=== PATIENT | female | born 1965 | race Caucasian/White ===

== ENCOUNTER 2019-04-21 16:38 | Emergency (ER) | payer BC ==
[2019-04-21] MEDS ORDERED: MAGNESIUM SULFATE 16 MEQ in 0.9 % SODIUM CHLORIDE 100ML 100 ML IV ONE (16:45)
[2019-04-21 17:05] LABS: ABSOLUTE NEUTROPHIL COUNT 8.91; BASO % 0.1 % (0-6); GRAN % 77.3 % (47-80); HEMATOCRIT 42.3 % (35.0-47.0); HEMOGLOBIN 11.8 gm/dl (11.6-16.0); LYMPH % 9.5 % (16-45); MEAN CELL VOLUME 65.6 fl (81-97); MEAN CORPUSCULAR HGB CONC 27.9 g/dl (32-36); MEAN PLATELET VOLUME 9.9 fl (7.4-10.4); MONO % 13.1 % (0-9); PLATELET COUNT 336 K/uL (130-400); RED BLOOD COUNT 6.45 M/uL (3.80-5.40); RED CELL DISTRIBUTION WIDTH 21.4 % (11.5-14.5); WHITE BLOOD COUNT W/O DIFF 11.5 K/uL (4.2-12.2)
[2019-04-21 17:14] LABS: BLOOD UREA NITROGEN 20 mg/dL (6-20); CREATININE 0.4 mg/dL (0.5-0.9); EST GLOMERULAR FILTRATION RATE > 60 mL/min
[2019-04-21 17:15] LABS: MEAN CORPUSCULAR HEMOGLOBIN 18.2 pg (27-33)
[2019-04-21 17:17] LABS: GLUCOSE,RANDOM 154 mg/dL (74-109)
[2019-04-21] MEDS ORDERED: 0.9 % SODIUM CHLORIDE 1,000 ML BAG IV ONE ×2 (17:28→18:15)
[2019-04-21 17:29] LABS: ARTERIAL BLOOD GAS pH 7.19 (7.35-7.45)
[2019-04-21] MEDS ORDERED: CEFTRIAXONE 1GM/50ML BAG 1 GM/50 ML BAG IVPB ONE (17:29)
[2019-04-21 17:30] LABS: ALLEN TEST PASS
--- NOTE | 2019-04-21 17:32 | Emergency Department Record ---
History of Present Illness - General Chief Complaint: Difficulty Breathing Stated Complaint: GUILLE Time Seen by Provider: 04/21/19 16:38 Source: Family Mode of Arrival: EMS Limitations: Altered mental status - History of Present Illness Initial Comments: The patient is here due to a hx of severe COPD and with SOB for the last 3 days. The SOB got much worse the last 2 hours. She developed a decreased level of consciousness at home so her called 911. The patient was found by EMS obtunded with very little air movement and a low biox. She has per her had a worse wet cough recently but no fever. The patient did receive multiple breathing Tx's and Solumedrol en route. She has been admitted twice in the last 2 years for COPD exacerbations and is on home O2. MD Complaint: Shortness of breath Onset/Timin -: Days(s) - Related Data Home Oxygen Therapy: Yes Home Oxygen Amount: 2 Liters Home Medications Medication Instructions Recorded Confirmed Last Taken Buspirone HCl [Buspar] 5 mg PO BID 04/21/19 04/21/19 1 Day Ago ~04/20/19 Ergocalciferol (Vitamin D2) 50,000 unit PO WEEKLY 04/21/19 04/21/19 1 Day Ago [Vitamin D2] ~04/20/19 Ipratropium/Albuterol [Duoneb] 3 ml IH Q4H 04/21/19 04/21/19 1 Day Ago ~04/20/19 Levothyroxine Sodium [Synthroid] 175 mcg PO DAILY 04/21/19 04/21/19 1 Day Ago ~04/20/19 Allergies Allergy/AdvReac Type Severity Reaction Status Date / Time levothyroxine sodium Allergy ANAPHYLAXIS Verified 04/21/19 16:53 [From Synthroid] Travel Screening - Travel/Exposure Within Last 30 Days Have you traveled within the last 30 days?: No - Travel/Exposure Within Last Year Have you traveled outside the [place] in the last year?: No - Additonal Travel Details Have you been exposed to anyone with a communicable illness?: No - Travel Symptoms Symptom Screening: None Review of Systems ROS unobtainable: Due to mental status Past Medical History - SOCIAL HISTORY Smoking Status: Light tobacco smoker (<10/day) Alcohol Use: None Drug Use: None - RESPIRATORY Hx Respiratory Disorders: Yes Hx COPD: Yes Comment:: O2 for 1 year per EMS. - CARDIOVASCULAR Hx Cardio Disorders: No - NEURO Hx Neuro Disorders: No - GI Hx GI Disorders: Yes Hx Reflux: Yes - Hx Genitourinary Disorders: No - ENDOCRINE Hx Endocrine Disorders: Yes Hx Diabetes: No Hx Thyroid Disease: Yes (allergic to generic synthroid) - MUSCULOSKELETAL Hx Musculoskeletal Disorders: No - PSYCH Hx Psych Problems: Yes Hx Anxiety: Yes Hx Depression: Yes - HEMATOLOGY/ONCOLOGY Hx Hematology/Oncology Disorders: Yes Hx Anemia: Yes (Thalacemia) Hx Cancer: Yes (cervical) Family Medical History Any Significant Family History?: Yes Family Hx Comment (NOT TO BE USED IN PLACE OF ITEMS BELOW): unknown Physical Exam - General General Appearance: Moderate distress Limitations: Altered mental status - Head Head exam: Atraumatic - Eye Eye exam: Normal appearance - Neck Neck exam: Normal inspection - Respiratory Respiratory exam: Decreased breath sounds. negative: Normal lung sounds bilaterally - Cardiovascular Cardiovascular Exam: Regular rate, Normal rhythm, Normal heart sounds - GI/Abdominal GI/Abdominal exam: Soft, Normal bowel sounds. negative: Tenderness - Extremities Extremities exam: Normal inspection, Full ROM, Normal capillary refill. negative: Tenderness - Neurological Neurological exam: Altered (The patient does open her eyes with very minimal stimulation.). negative: Alert - Skin Skin exam: negative: Rash Course Vital Signs 04/21/19 04/21/19 16:41 17:08 Temperature 97.6 F Pulse Rate 104 H Pulse Rate [ 103 H Enroller ] Respiratory 8 L 12 Rate Blood Pressure 120/86 Blood Pressure 149/94 [Left Arm] Pulse Ox 94 L 92 L - Reevaluation(s) Reevaluation #1: The patient is hemodynamically stable at this time. She is waking up and is more alert. Her biox is running mid 90's presently. The patient's ABG does show significant CO2 retention. We will continue to treat for 30 minutes and check a 2nd ABg. If not significantly better the patient will need to be intubated. 04/21/19 17:39 Reevaluation #2: The patient is doing a lot better at this time. She is much more awake and alert and answering questions. She states her breathing is improved. The patient's 2nd ABG is significantly improved so I do not feel she will need to be intubated at this time. I did originally contact [facility] but since the patient will not to be intubated they could not accept her. I then did discuss the [place] [facility] [place]. We have treated the patient for pneumonia and her respiratory status continues to improve. 04/21/19 18:43 Medical Decision Making - Management Options MDM Management: Additional Work-up Planned (e.g. ADM/Transfer/OP Study) - Data Complexity MDM Data: Labs Ordered and/or Reviewed, X-Ray Ordered and/or Reviewed, EKG Ordered and/or Reviewed - Lab Data Result diagrams: 04/21/19 16:55 04/21/19 16:55 Lab Results 04/21/19 04/21/19 04/21/19 Range/Units 16:43 16:55 16:55 WBC 11.5 (4.2-12.2) K/uL RBC 6.45 H (3.80-5.40) M/uL Hgb 11.8 (11.6-16.0) gm/dl Hct 42.3 (35.0-47.0) % MCV 65.6 L (81-97) fl MCH 18.2 L (27-33) pg MCHC 27.9 L (32-36) g/dl RDW 21.4 H (11.5-14.5) % Plt Count 336 (130-400) K/uL MPV 9.9 (7.4-10.4) fl Gran % 77.3 (47-80) % Lymphocytes % 9.5 L (16-45) % Monocytes % 13.1 H (0-9) % Eosinophils % 0.0 (0-6) % Basophils % 0.1 (0-6) % Absolute Neutrophils 8.91 Puncture Site Right wrist pCO2 108.0 H* (35-48) mmHg pO2 81.0 L (83-108) mmHg HCO3 Not Reportable Oxyhemoglobin Not Reportable ABG pH 7.19 L* (7.35-7.45) ABG O2 Saturation Not Reportable ABG Base Excess Not Reportable Carlos Alberto Test Pass Carboxyhemoglobin Not Reportable Methemoglobin Not Reportable Actual Respiration Rate 16.0 (10-18) /MIN FiO2 92.0 % Sodium 144 (136-145) mmol/L Potassium 5.1 H (3.4-4.5) mmol/L Chloride 97 L (98-107) mmol/L Carbon Dioxide 38.0 H (22-29) mmol/L Anion Gap 9.0 (7-16) BUN 20 (6-20) mg/dL Creatinine 0.4 L (0.5-0.9) mg/dL Estimated GFR > 60 mL/min Random Glucose 154 H (74-109) mg/dL Calcium 9.7 (8.6-10.0) mg/dL - EKG Data -: EKG Interpreted by Me EKG: No Acute Changes, Abnormal EKG (Sinus Tach at 101, Old anterior wall [place].) - Radiology Data Radiology results: Report reviewed (CXR: COPD) Critical Care Time Critical Care Time: Yes (45) Total Critical Care Time: 45 Disposition Disposition: Transfer Clinical Impression: Respiratory failure Qualifiers: Chronicity: acute Respiratory failure complication: hypercapnia Qualified Code(s): J96.02 - Acute respiratory failure with hypercapnia Disposition: Acute Care Hospital [place] [facility] [place]: [place] Accepting Physician: Ashia Time Discussed w/Accepting Physician: 18:46 Condition: (2) Stable Forms: Patient Portal Access Time of Disposition: 18:47 Quality - Quality Measures Quality Measures: N/A - Blood Pressure Screening View Details: Yes Does Patient Have Any of the Following: No Blood Pressure Classification: Pre-Hypertensive BP Reading Systolic Measurement: 120 Diastolic Measurement: 86 Screening for High Blood Pressure: < Pre-Hypertensive BP, F/U Documented > [G8950] Pre-Hypertensive Follow-up Interventions: Referral to alternative/primary care provider.
--- NOTE | 2019-04-21 17:37 | RADIOLOGY REPORT ---
EXAMINATION: Single View Chest EXAM DATE: 04/21/2019 5:06 PM TECHNIQUE: Upright AP portable chest INDICATION: GUILLE COMPARISON: None. ENCOUNTER: Not applicable FINDINGS: Hyperinflation Central interstitial prominence No pneumothorax or pleural effusion demonstrated Grid artifact IMPRESSION: No acute intrathoracic finding demonstrated COPD Dictated by: Koko Rocha MD on 04/21/2019 5:34 PM. .
[2019-04-21 18:19] LABS: ARTERIAL BLOOD GAS PCO2 97.1 mmHg (35-48); ARTERIAL BLOOD GAS pH 7.23 (7.35-7.45)
[2019-04-21 18:20] LABS: ALLEN TEST PASS
[2019-04-21] MEDS ORDERED: AZITHROMYCIN 500 MG in 0.9 % SODIUM CHLORIDE 250ML 250 ML IVPB ONE (18:27)
== END 2019-04-21 19:12 | disposition short-term general hospital (02) ==
LOC: ER 16:38
DX: J96.02 Acute respiratory failure with hypercapnia (principal); J44.9 Chronic obstructive pulmonary disease, unspecified; Z99.81 Dependence on supplemental oxygen; F17.210 Nicotine dependence, cigarettes, uncomplicated; I25.2 Old myocardial infarction
CPT/HCPCS: 36600; 71045; 80048; 82375; 82803; 83605; 84484; 85025; 93005; 93010; 94640; 94660; 96365; 96366; 96368; 96375; 99291; J0456; J0696; J7030; J7050

== ENCOUNTER 2019-06-22 16:55 | Emergency (ER) | payer BC ==
[2019-06-22] MEDS ORDERED: ALBUTEROL (0.5% CONCENTRATED) 2.5 MG/0.5 ML VIAL.NEB INH ONE ×2 (17:01→17:53)
[2019-06-22] MEDS ORDERED: MAGNESIUM SULFATE 16 MEQ in 0.9 % SODIUM CHLORIDE 100ML 100 ML IV ONE (17:07)
--- NOTE | 2019-06-22 17:07 | Emergency Department Record ---
History of Present Illness - General Chief Complaint: Difficulty Breathing Stated Complaint: GUILLE Time Seen by Provider: 06/22/19 17:04 Source: Patient, Family Mode of Arrival: EMS Limitations: Physical limitation (due to BIPAP) - History of Present Illness Initial Comments: The patient is here due to a 3 day hx of worsening SOB and weakness. The patient has a recent hx of severely worsening COPD and is basically end stage at this point. She has been admitted for about a week each of the last 2 months. The patient has been on BIPAP with both admissions but not intubated. Per the patient's she has had mild sputum production recently but no Cp, fever, or any trauma or falls. She did receive 125 mg IV of Solumedrol in the ambulance. MD Complaint: Shortness of breath Onset/Timin -: Days(s) - Related Data Allergies Allergy/AdvReac Type Severity Reaction Status Date / Time levothyroxine sodium Allergy Severe ANAPHYLAXIS Verified 06/22/19 16:57 [From Synthroid] Review of Systems Constitutional: Denies: Chills, Fever Eyes: Denies: Eye discharge ENT: Reports: Congestion Respiratory: Reports: Cough, Dyspnea. Denies: Hemoptysis Cardiovascular: Denies: Chest pain Endocrine: Reports: Fatigue Gastrointestinal: Denies: Diarrhea, Vomiting Genitourinary: Denies: Dysuria Musculoskeletal: Denies: Arthralgia Skin: Denies: Bruising Past Medical History - SOCIAL HISTORY Smoking Status: Light tobacco smoker (<10/day) Drug Use: None - RESPIRATORY Hx Respiratory Disorders: Yes Hx COPD: Yes Comment:: O2 for 1 year per EMS. - CARDIOVASCULAR Hx Cardio Disorders: No - NEURO Hx Neuro Disorders: No - GI Hx GI Disorders: Yes Hx Reflux: Yes - Hx Genitourinary Disorders: No - ENDOCRINE Hx Endocrine Disorders: Yes Hx Diabetes: No Hx Thyroid Disease: Yes (allergic to generic synthroid) - MUSCULOSKELETAL Hx Musculoskeletal Disorders: No - PSYCH Hx Psych Problems: Yes Hx Anxiety: Yes Hx Depression: Yes - HEMATOLOGY/ONCOLOGY Hx Hematology/Oncology Disorders: Yes Hx Anemia: Yes (Thalacemia) Hx Cancer: Yes (cervical) Family Medical History Family Hx Comment (NOT TO BE USED IN PLACE OF ITEMS BELOW): unknown Physical Exam - General General Appearance: Alert, Cooperative, Mild distress (due to GUILLE) - Head Head exam: Atraumatic, Normocephalic - Eye Eye exam: Normal appearance, PERRL - ENT Throat exam: negative: Normal inspection (unable to assess due to BIPAP.) - Neck Neck exam: Normal inspection, Full ROM. negative: Tenderness - Respiratory Respiratory exam: Accessory muscle use (mild.), Decreased breath sounds, Respiratory distress (mild.). negative: Normal lung sounds bilaterally - Cardiovascular Cardiovascular Exam: Regular rate, Normal rhythm, Normal heart sounds - GI/Abdominal GI/Abdominal exam: Soft, Normal bowel sounds. negative: Tenderness - Extremities Extremities exam: Normal inspection, Full ROM, Normal capillary refill. negative: Tenderness - Neurological Neurological exam: Alert. negative: Motor sensory deficit - Psychiatric Psychiatric exam: negative: Anxious Course - Reevaluation(s) Reevaluation #1: The patient is doing well at this time. She feels her breathing is improving on the BIPAP and she is resting comfortably. 06/22/19 17:42 Reevaluation #2: The patient is doing better at this time. Her breathing continues to improve and she denies any pain or discomfort. I do believe her issues is due to her end stage COPD and do believe she will need to be [place] [facility] [place] ago and the patient and do agree. I then did discus the case with Dr. Ang and she does accept the transfer. 06/22/19 18:00 Reevaluation #3: The patient is resting comfortably at this time and has normal vital signs. She is awake and alert and not feeling tired at this time. She is still on the BIPAP and resting comfortably. 06/22/19 18:14 Medical Decision Making - Data Complexity MDM Data: Labs Ordered and/or Reviewed (The ABG machine is currently not working correctly at this time. The CO2 on the ABG machine is measuring >120 but the tech believes it is not correct. The PH is 7.24 and that does appear consistent with the patient's clinical picture of the COPD exacerbation.), X-Ray Ordered and/or Reviewed, EKG Ordered and/or Reviewed - Lab Data Result diagrams: 06/22/19 17:00 06/22/19 17:00 - EKG Data -: EKG Interpreted by Me EKG: No Acute Changes, Unchanged From Previous - Radiology Data Radiology results: Report reviewed (CXR: COPD, O/W neg.) Critical Care Time Critical Care Time: Yes Total Critical Care Time: 45 Critical Care Time: Total CC time is 45 minutes. Disposition Disposition: Transfer Clinical Impression: COPD exacerbation Respiratory failure Qualifiers: Chronicity: acute on chronic Respiratory failure complication: hypercapnia Qualified Code(s): J96.22 - Acute and chronic respiratory failure with hypercapnia Disposition: Acute Care Hospital [place] [facility] [place] Accepting Physician: Ashia Time Discussed w/Accepting Physician: 18:02 Condition: (2) Stable Forms: Patient Portal Access Time of Disposition: 18:02 Quality - Quality Measures Quality Measures: N/A - Blood Pressure Screening View Details: Yes Does Patient Have Any of the Following: No Blood Pressure Classification: Hypertensive Reading Systolic Measurement: 145 Diastolic Measurement: 92 Screening for High Blood Pressure: < First Hypertensive BP, F/U Documented > [G8950] First Hypertensive Follow-up Interventions: Referral to alternative/primary care provider.
[2019-06-22 17:13] LABS: ABSOLUTE NEUTROPHIL COUNT 5.99; BASO % 0.2 % (0-6); EOS % 0.1 % (0-6); HEMATOCRIT 49.4 % (35.0-47.0); HEMOGLOBIN 12.5 gm/dl (11.6-16.0); LYMPH % 19.2 % (16-45); MEAN PLATELET VOLUME 9.5 fl (7.4-10.4); MONO % 6.5 % (0-9); PLATELET COUNT 197 K/uL (130-400); RED BLOOD COUNT 6.96 M/uL (3.80-5.40); WHITE BLOOD COUNT W/O DIFF 8.1 K/uL (4.2-12.2)
[2019-06-22 17:18] LABS: MEAN CORPUSCULAR HEMOGLOBIN 17.9 pg (27-33)
[2019-06-22 17:19] LABS: MEAN CORPUSCULAR HGB CONC 25.3 g/dl (32-36); RED CELL DISTRIBUTION WIDTH 22.2 % (11.5-14.5)
[2019-06-22 17:23] LABS: ARTERIAL BLOOD GAS BASE EXCESS 27.4 mmol/L (-2 - 3); ARTERIAL BLOOD GAS HCO3 56.2 mmol/L (18-23); ARTERIAL BLOOD GAS pH 7.24 (7.35-7.45)
[2019-06-22 17:27] LABS: BLOOD UREA NITROGEN 18 mg/dL (6-20); CREATININE 0.3 mg/dL (0.5-0.9); EST GLOMERULAR FILTRATION RATE > 60 mL/min
[2019-06-22 17:30] LABS: GLUCOSE,RANDOM 105 mg/dL (74-109)
[2019-06-22 17:33] LABS: ALBUMIN 4.6 g/dL (4.0-5.0); ALKALINE PHOSPHATASE 64 U/L (35-104); ALT/SGPT 19 U/L (<33); AST/SGOT 16 U/L (10.0-35.0)
[2019-06-22 17:38] LABS: ARTERIAL BLOOD GAS PCO2 > 120.0 mmHg (35-48)
[2019-06-22 17:40] LABS: ALLEN TEST PASS
[2019-06-22] MEDS ORDERED: ALBUTEROL SULFATE 0.5% 5 MG/ML BTL 20ML INH SCH (17:45)
[2019-06-22 17:51] LABS: ALB/GLOB RATIO 1.9 (1.1-1.8)
[2019-06-22 17:54] LABS: C-REACTIVE PROTEIN 0.17 mg/dL (<0.5)
--- NOTE | 2019-06-22 17:56 | RADIOLOGY REPORT ---
EXAMINATION: Single View Chest EXAM DATE: 06/22/2019 5:28 PM TECHNIQUE: Single view chest INDICATION: GUILLE COMPARISON: 06/05/2019 ENCOUNTER: Not applicable FINDINGS: The heart is not enlarged and the pulmonary vessels are not congested. Mild fibrotic scarring is agai n noted within the lungs but there is no acute airspace consolidation or pleural effusions. Hyperinfl ation is again noted from COPD. IMPRESSION: No acute cardiopulmonary disease is present. Dictated by: Koko Deal MD on 06/22/2019 5:52 PM. .
[2019-06-22] MEDS ORDERED: 0.9 % SODIUM CHLORIDE 1,000 ML BAG IV ONE (18:07)
== END 2019-06-22 18:36 | disposition short-term general hospital (02) ==
LOC: ER 16:55
DX: J96.22 Acute and chronic respiratory failure with hypercapnia (principal); J44.1 Chronic obstructive pulmonary disease with (acute) exacerbation; F17.210 Nicotine dependence, cigarettes, uncomplicated; Z99.81 Dependence on supplemental oxygen
CPT/HCPCS: 36600; 71045; 80053; 82375; 82803; 83605; 84145; 84484; 85025; 86140; 93005; 93010; 94644; 94645; 94660; 96374; 99291